=== PATIENT | male | born 1965 | race Caucasian/White ===

== ENCOUNTER 2018-01-25 15:06 | Observation (INO) | payer BC ==
[2018-01-25] MEDS ORDERED: Aspirin 81 MG Tab.Chew PO ONE (15:24)
[2018-01-25] MEDS ORDERED: Sodium Chloride 0.9% 10 ML Syringe FLUSH PRN ×2 (15:24→15:25)
[2018-01-25] MEDS ORDERED: Lactated Ringers 1,000 ML IV SCH (15:25)
--- NOTE | 2018-01-25 15:25 | EDM.PDOC ---
ED HPI GENERAL MEDICAL PROBLEM - General Chief Complaint: Respiratory Problem Stated Complaint: SOB Time Seen by Provider: 01/25/18 15:25 Source of Information: Reports: Patient, RN History Limitations: Reports: No Limitations - History of Present Illness INITIAL COMMENTS - FREE TEXT/NARRATIVE: 53 yr male presents with chest heaviness and shortness of breath. States this started today around 12:30 when he was having lunch. States no cardiac history and no medications. States he feels like something is on his chest. EKG completed and cardiac work-up. ASA given and nitro 1 tablet sl given. Pt started to vomit and Blood pressure decreased and pt states no more chest heaviness. Onset: Today Onset Date: 01/25/18 Onset Time: 12:30 Location: Reports: Chest Middle Chest Pain Score (Numeric/FACES): 7 - Related Data Allergies Allergy/AdvReac Type Severity Reaction Status Date / Time No Known Allergies Allergy Verified 01/25/18 15:27 Home Meds: Home Meds NK [No Known Home Meds] 01/25/18 [History] ED ROS GENERAL - Review of Systems Review Of Systems: See Below Constitutional: Reports: No Symptoms HEENT: Reports: No Symptoms Respiratory: Reports: Shortness of Breath Cardiovascular: Reports: Other (chest heaviness) Endocrine: Reports: No Symptoms GI/Abdominal: Reports: No Symptoms ED EXAM, GENERAL - Physical Exam Exam: See Below Exam Limited By: No Limitations General Appearance: Alert, Mild Distress Ears: Normal External Exam, Hearing Grossly Normal Nose: Normal Inspection, Normal Mucosa Throat/Mouth: Normal Voice, No Airway Compromise Head: Atraumatic, Normocephalic Neck: Normal Inspection, Supple, Non-Tender Respiratory/Chest: Lungs Clear, Normal Breath Sounds. No: Crackles, Rhonchi Cardiovascular: Regular Rate, Rhythm, No Edema GI/Abdominal: Soft, Non-Tender (Male) Exam: Deferred Rectal (Males) Exam: Deferred Neurological: Alert, Oriented, Normal Cognition Psychiatric: Normal Affect, Normal Mood Skin Exam: Warm, Dry, Normal Color Course - Vital Signs Last Recorded V/S: Last Vital Signs Temp 99.5 F 01/25/18 17:25 Pulse 106 H 01/25/18 17:25 Resp 15 01/25/18 15:10 BP 143/80 H 01/25/18 17:25 Pulse Ox 97 01/25/18 17:25 - Orders/Labs/Meds Orders: Active Orders 24 hr Category Date Time Status Cardiac Monitoring [RC] .As Directed Care 01/25/18 15:25 Active Cardiac Monitoring [RC] .As Directed Care 01/25/18 15:25 Inactive EKG Documentation Completion [RC] ASDIRECTED Care 01/25/18 15:26 Active EKG Documentation Completion [RC] ASDIRECTED Care 01/25/18 15:26 Inactive EKG Documentation Completion [RC] STAT Care 01/25/18 15:24 Active Pulse Oximetry [RC] ASDIRECTED Care 01/25/18 15:24 Active Chest 1V Frontal [CR] Stat Exams 01/25/18 15:26 Ordered TROPONIN I [CHEM] Routine Lab 01/25/18 19:00 Ordered Sodium Chloride 0.9% [Normal Saline] 1,000 ml Med 01/25/18 16:00 Active IV ASDIRECTED Sodium Chloride 0.9% [Saline Flush] Med 01/25/18 15:25 Active 10 ml FLUSH ASDIRECTED PRN Peripheral IV Insertion Adult [OM.PC] Stat Oth 01/25/18 15:24 Ordered Saline Lock Insert [OM.PC] Stat Oth 01/25/18 15:24 Ordered Medication Orders Sodium Chloride (Normal Saline) 1,000 mls @ 75 mls/hr IV ASDIRECTED FANNY Sodium Chloride (Saline Flush) 10 ml FLUSH ASDIRECTED PRN PRN Reason: Keep Vein Open Labs: Laboratory Tests 01/25/18 01/25/18 Range/Units 15:20 16:00 WBC 13.4 H (4.0-11.0) K/uL RBC 4.92 (4.50-6.50) M/uL Hgb 15.7 (13.0-18.0) g/dL Hct 43.5 (40.0-54.0) % MCV 88 (76-96) fL MCH 31.9 (27.0-32.0) pg MCHC 36.1 H (31.0-35.0) g/dL RDW 12.5 (11.0-16.0) % Plt Count 166 (150-400) K/uL MPV 11.7 H (6.0-10.0) fL Neut % (Auto) 90.8 H (45.0-70.0) % Lymph % (Auto) 3.7 L (20.0-40.0) % [place] % (Auto) 4.7 (3.0-10.0) % Eos % (Auto) 0.6 L (1.0-5.0) % Baso % (Auto) 0.2 (0.0-0.5) % Neut # (Auto) 12.18 H (2.00-7.50) K/uL Lymph # (Auto) 0.49 L (1.50-4.00) K/uL [place] # (Auto) 0.63 (0.20-0.80) K/uL Eos # (Auto) 0.08 (0.04-0.40) K/uL Baso # (Auto) 0.03 (0.02-0.10) K/uL Sodium 139 (136-145) mmol/L Potassium 4.2 (3.5-5.1) mmol/L Chloride 104 (98-107) mmol/L Carbon Dioxide 24.0 (21.0-32.0) mmol/L Anion Gap 15.2 H (5.0-15.0) mmol/L BUN 27 H (8-26) mg/dL Creatinine 1.07 (0.70-1.30) mg/dL Est Cr Clr Drug Dosing TNP Estimated GFR (MDRD) > 60 (>60) MLS/MIN BUN/Creatinine Ratio 25.2 H (6-25) Glucose 136 H (74-100) mg/dL Calcium 8.3 L (8.5-10.1) mg/dL Troponin I < 0.017 (0.000-0.060) ng/mL Meds: Medications Generic Name Dose Route Start Last Admin Trade Name Freq PRN Reason Stop Dose Admin Sodium Chloride 1,000 mls @ 75 mls/hr 01/25/18 16:00 Normal Saline IV ASDIRECTED FANNY Sodium Chloride 10 ml 01/25/18 15:25 Saline Flush FLUSH ASDIRECTED PRN Keep Vein Open Discontinued Medications Generic Name Dose Route Start Last Admin Trade Name Freq PRN Reason Stop Dose Admin Aspirin 324 mg 01/25/18 15:24 01/25/18 15:24 Aspirin PO 01/25/18 15:25 Not Given ONETIME ONE Sodium Chloride 10 ml 01/25/18 15:24 Saline Flush FLUSH ASDIRECTED PRN Keep Vein Open - Re-Assessments/Exams Free Text/Narrative Re-Assessment/Exam: 01/25/18 18:15 LE Troponins negative, chest x-ray negative for infiltrates. slight elevation in WBC and neutrophils. No cough and no signs of infection noted. EKG shows NSR. Chest heaviness relieved after vomiting and after nitro. IV fluids/ LR at 75 cc/hr and continue cardiac tech. Cardiac diet for supper. Will check series of Troponins and treatment dependent on results. 17:10 Reviewed pt status with oncoming provider, ARMINDA Flanagan to assume care of pt. Departure - Departure Time of Disposition: 17:23 (Observation) Disposition: Admitted As Inpatient 64 Condition: Good Clinical Impression: Chest heaviness, Shortness of breath - My Orders Last 24 Hours: My Active Orders 01/25/18 15:24 EKG Documentation Completion [RC] STAT Pulse Oximetry [RC] ASDIRECTED Peripheral IV Insertion Adult [OM.PC] Stat Saline Lock Insert [OM.PC] Stat 01/25/18 15:25 Cardiac Monitoring [RC] .As Directed Cardiac Monitoring [RC] .As Directed Sodium Chloride 0.9% [Saline Flush] 10 ml FLUSH ASDIRECTED PRN 01/25/18 15:26 EKG Documentation Completion [RC] ASDIRECTED EKG Documentation Completion [RC] ASDIRECTED Chest 1V Frontal [CR] Stat 01/25/18 16:00 Sodium Chloride 0.9% [Normal Saline] 1,000 ml IV ASDIRECTED 01/25/18 19:00 TROPONIN I [CHEM] Routine - Assessment/Plan Last 24 Hours: My Active Orders 01/25/18 15:24 EKG Documentation Completion [RC] STAT Pulse Oximetry [RC] ASDIRECTED Peripheral IV Insertion Adult [OM.PC] Stat Saline Lock Insert [OM.PC] Stat 01/25/18 15:25 Cardiac Monitoring [RC] .As Directed Cardiac Monitoring [RC] .As Directed Sodium Chloride 0.9% [Saline Flush] 10 ml FLUSH ASDIRECTED PRN 01/25/18 15:26 EKG Documentation Completion [RC] ASDIRECTED EKG Documentation Completion [RC] ASDIRECTED Chest 1V Frontal [CR] Stat 01/25/18 16:00 Sodium Chloride 0.9% [Normal Saline] 1,000 ml IV ASDIRECTED 01/25/18 19:00 TROPONIN I [CHEM] Routine
[2018-01-25] MEDS ORDERED: Nitroglycerin 0.4 MG Tab.SL ONE (15:30)
[2018-01-25] MEDS ORDERED: Aspirin 81 MG Tab.Chew ONE (15:30)
[2018-01-25] MEDS ORDERED: Sodium Chloride 0.9% 1,000 ML IV SCH (16:00)
[2018-01-25] MEDS ORDERED: Acetaminophen 325 MG Tab PO PRN (20:00)
[2018-01-25] MEDS ORDERED: Acetaminophen 325 MG Tab ONE (20:06)
--- NOTE | 2018-01-26 00:22 | DISCH ---
This patient was admitted to the ER earlier today for cardiac rule out. He had an episode on the job mid day where he stated that he was having trouble breathing. He felt like there was maybe some pressure in his chest. He had initial evaluation in the emergency room, which was negative for cardiac markers. The patient's white count is slightly elevated at 13.4, neutrophils are at 90.8. The patient was admitted for observation. His second troponin was also negative. The patient states that he feels okay. He has not had any of the previous symptoms since showing up at the emergency room. He stated that the symptoms lasted for approximately 2 hours. The patient has no coronary artery disease. He is not a smoker. There is no family history of coronary artery disease. The patient was given Tylenol for a low-grade fever recently and feels better. OBJECTIVE: GENERAL APPEARANCE: The patient is awake and alert. No obvious distress. VITAL SIGNS: Reviewed. Most recent vital signs show a temp of 100.6, pulse is 104, respirations are 32, blood pressure 135/88, and O2 sats are 95%. LUNGS: On physical exam, lungs are clear to auscultation without rales, wheezes, or rhonchi. He has good air exchange throughout the lung hernandez. CARDIAC: Heart sounds distinct. S1, S2 present. Regular rate. No murmurs. ABDOMEN: Soft, nontender. Bowel sounds are present. SKIN: Warm and dry. LAB AND X-RAY: I have reviewed the patient's chest x-ray. It looks like some mild pulmonary congestion may be present, but I do not see any obvious pneumonia. TREATMENT PLAN: I advised patient that he is stable from a cardiac standpoint at this time. He can be discharged home, and he very much wants to go home. I advised patient that he needs to go home and rest and take Tylenol or ibuprofen regularly, and recheck should be within the next day or two. I want him to follow up in the clinic and the next step would be to schedule him for a stress test. The patient agrees to this and has no further questions. Followup should be sooner of course if anything changes or if symptoms should happen to get worse or reoccur. Addendum - final diagnosis; 1) Chest pain with a negative cardiac workup. CRS/MODL /[id number] MTDD
--- NOTE | 2018-01-26 09:43 | CR ---
DATE OF SERVICE: 01/25/2018 CLINICAL DATA: Chest Pain AP CHEST: No priors. The patient has taken a very poor inspiration. The heart size is normal. The aorta is ectatic. There are atelectatic changes in both lower lungs. The lungs are otherwise clear. No pneumothorax. No pleural effusions. [id number] MTDD
== END 2018-01-25 22:15 | disposition home or self-care (01) ==
LOC: LB.ED 15:06 → LB.MS 16:42
PROVIDERS: ADMIT Nurse Practitioner Family; ATTEND Nurse Practitioner Family
DX: R07.9 Chest pain, unspecified (principal)
CPT/HCPCS: 36415; 71045; 80048; 84484; 85025; 93005; 99285; A9270; J7120; 96360; 96361; G0378